=== PATIENT | female | born 1945 | race Caucasian/White ===

== ENCOUNTER 2018-03-04 06:46 | Emergency (ER) | payer MEDICARE, MEDICAID ==
[~2018-03-04] VITALS: Ht 162.6 cm; Wt 70.0 kg
[~2018-03-04 06:46] MED LIST: AMLO5TAB PO; CYCL-1 PO; NO HOME MEDS; ONDA4TAB6 PO
[2018-03-04] MEDS ORDERED: aspirin 81mg tab.chew PO ONE (07:10)
[2018-03-04] MEDS ORDERED: acetaminophen 325mg tablet PO ONE (07:10)
[2018-03-04] MEDS ORDERED: proCHLORperazine 10 MG/2 ml inj IV ONE (07:10)
[2018-03-04] MEDS ORDERED: dexamethasone 4mg/ml inj IV ONE (07:10)
[2018-03-04 07:39] LABS: BASOPHILS % (AUTO) 0.3 % (0-1); EOSINOPHILS # (AUTO) 0.2 X10'3 (0-0.9); EOSINOPHILS % (AUTO) 2.5 % (0-6); HEMOGLOBIN 10.7 g/dl (12.0-16.0); LYMPHOCYTES # (AUTO) 0.9 X10'3 (1.1-4.8); LYMPHOCYTES % (AUTO) 14.2 % (21-51); MEAN CORPUSCULAR HEMOGLOBIN 26.7 PG (27.0-31.0); MEAN CORPUSCULAR HGB CONC 33.5 % (33.0-36.5); MEAN CORPUSCULAR VOLUME 79.7 FL (78-98); MEAN PLATELET VOLUME 6.6 FL (7.4-10.4); MONOCYTES # (AUTO) 0.6 X10'3 (0-0.9); MONOCYTES % (AUTO) 9.5 % (2-12); NEUTROPHILS # (AUTO) 4.8 X10'3 (1.8-7.7); NEUTROPHILS % (AUTO) 73.5 % (42-75); PLATELET COUNT 252 X10'3 (140-440); RED BLOOD COUNT 4.02 X10'6 (4.20-5.60); RED CELL DISTRIBUTION WIDTH 17.5 % (11.5-14.5); WHITE BLOOD COUNT 6.5 X10'3 (4.5-11.0)
[2018-03-04 07:53] LABS: ALANINE AMINOTRANSFERASE 28 U/L (12-78); ALBUMIN 3.4 G/DL (3.4-5.0); ALBUMIN/GLOBULIN RATIO 0.8 (1.1-1.5); ALKALINE PHOSPHATASE 76 IU/L (46-116); ANION GAP 11 (8-16); ASPARTATE AMINO TRANSFERASE 19 U/L (10-37); BILIRUBIN,TOTAL 0.2 MG/DL (0.1-1.0); BLOOD UREA NITROGEN 16 MG/DL (7-18); BUN/CREATININE RATIO 19.5 (6.6-38.0); CALCIUM 8.9 MG/DL (8.5-10.1); CHLORIDE 107 MMOL/L (99-107); CREATININE 0.82 MG/DL (0.40-0.90); GLUCOSE 95 MG/DL (70-104); MAGNESIUM 2.3 MG/DL (1.5-2.4); POTASSIUM 3.6 MMOL/L (3.5-5.1); SODIUM 143 MMOL/L (135-145); TOTAL CARBON DIOXIDE 25.4 MMOL/L (24-32); TOTAL PROTEIN 7.8 G/DL (6.4-8.2); eGFR 69 ML/MIN
[2018-03-04] MEDS ORDERED: AZIT-63 PO (08:45)
[2018-03-04] MEDS ORDERED: azithromycin 250mg tablet PO ONE (08:50)
[2018-03-04 08:58] VITALS: BP 131/66
== END 2018-03-04 09:00 | disposition home or self-care (01) ==
LOC: ER 06:46
DX: G43.909 Migraine, unspecified, not intractable, without status migrainosus (principal); J06.9 Acute upper respiratory infection, unspecified; R52 Pain, unspecified; F12.90 Cannabis use, unspecified, uncomplicated; Z98.890 Other specified postprocedural states; Z79.899 Other long term (current) drug therapy; Z88.6 Allergy status to analgesic agent; Z88.5 Allergy status to narcotic agent
CPT/HCPCS: 36415; 71045; 80053; 83735; 84484; 85025; 93005; 96374; 96375; 99285; J0780; J1100

== ENCOUNTER 2018-04-03 08:42 | Emergency (ER) | payer MEDICARE, MEDICAID ==
[~2018-04-03] VITALS: Ht 162.6 cm; Wt 70.5 kg
[2018-04-03 08:44] VITALS: BP 127/64
[2018-04-03] MEDS ORDERED: normal saline 1000ML IV soln IVB ONE (09:00)
[2018-04-03] MEDS ORDERED: ondansetron/PF 4mg/2ml inj IV ONE ×2 (09:00→11:55)
[2018-04-03] MEDS ORDERED: iohexol 300mg/ml 100ml inj. ONE (09:08)
[2018-04-03 10:06] LABS: BASOPHILS % (AUTO) 0.1 % (0-1); EOSINOPHILS # (AUTO) 0.1 X10'3 (0-0.9); EOSINOPHILS % (AUTO) 1.1 % (0-6); HEMATOCRIT 28.4 % (35.0-45.0); HEMOGLOBIN 9.3 g/dl (12.0-16.0); LYMPHOCYTES # (AUTO) 0.2 X10'3 (1.1-4.8); LYMPHOCYTES % (AUTO) 3.7 % (21-51); MEAN CORPUSCULAR HEMOGLOBIN 25.6 PG (27.0-31.0); MEAN CORPUSCULAR HGB CONC 32.8 % (33.0-36.5); MEAN CORPUSCULAR VOLUME 78.1 FL (78-98); MEAN PLATELET VOLUME 6.4 FL (7.4-10.4); MONOCYTES # (AUTO) 0.2 X10'3 (0-0.9); MONOCYTES % (AUTO) 3.4 % (2-12); NEUTROPHILS # (AUTO) 6.2 X10'3 (1.8-7.7); NEUTROPHILS % (AUTO) 91.7 % (42-75); PLATELET COUNT 252 X10'3 (140-440); RED BLOOD COUNT 3.64 X10'6 (4.20-5.60); RED CELL DISTRIBUTION WIDTH 16.8 % (11.5-14.5); WHITE BLOOD COUNT 6.7 X10'3 (4.5-11.0)
[2018-04-03 10:21] LABS: ALANINE AMINOTRANSFERASE 21 U/L (12-78); ALBUMIN/GLOBULIN RATIO 0.8 (1.1-1.5); ALKALINE PHOSPHATASE 86 IU/L (46-116); ANION GAP 13 (8-16); ASPARTATE AMINO TRANSFERASE 19 U/L (10-37); BILIRUBIN,TOTAL 0.4 MG/DL (0.1-1.0); BLOOD UREA NITROGEN 16 MG/DL (7-18); BUN/CREATININE RATIO 21.3 (6.6-38.0); CALCIUM 7.6 MG/DL (8.5-10.1); CHLORIDE 103 MMOL/L (99-107); CREATININE 0.75 MG/DL (0.40-0.90); GLUCOSE 117 MG/DL (70-104); LIPASE 150 U/L (73-393); POTASSIUM 3.6 MMOL/L (3.5-5.1); SODIUM 138 MMOL/L (135-145); TOTAL CARBON DIOXIDE 22.5 MMOL/L (24-32); TOTAL PROTEIN 6.9 G/DL (6.4-8.2); eGFR 76 ML/MIN
[2018-04-03 10:40] LABS: CLARITY,URINE CLEAR (Clear); COLOR,URINE STRAW (Yellow); GLUCOSE, URINE NEGATIVE (Neg); KETONES,URINE NEGATIVE (Neg); LEUKOCYTE ESTERASE ,URINE NEGATIVE (Neg); NITRITES, URINE NEGATIVE (Neg); OCCULT BLOOD,URINE NEGATIVE (Neg); PROTEIN,URINE NEGATIVE (Neg); UROBILINOGEN,URINE 0.2 E.U/dL (0.2-1.0)
[2018-04-03 10:42] LABS: UA COLLECTION TYPE FOLEY CATH
[2018-04-03] MEDS ORDERED: fentaNYL/PF 50MCG/1 ML 2ML syringe IV ONE (10:50)
[2018-04-03] MEDS ORDERED: dicyclomine 10 MG capsule PO ONE (10:50)
[2018-04-03] MEDS ORDERED: METR500T4 PO (11:33)
[2018-04-03] MEDS ORDERED: ONDA8TAB9 PO (11:53)
[2018-04-03 14:06] LABS: OCCULT BLOOD STOOL POSITIVE (Neg)
== END 2018-04-03 12:07 | disposition home or self-care (01) ==
LOC: ER 08:42
DX: K52.9 Noninfective gastroenteritis and colitis, unspecified (principal); F12.90 Cannabis use, unspecified, uncomplicated; Z98.890 Other specified postprocedural states; Z59.0 Homelessness; Z88.6 Allergy status to analgesic agent; Z88.5 Allergy status to narcotic agent; Z88.8 Allergy status to other drugs, medicaments and biological substances; Z79.899 Other long term (current) drug therapy
CPT/HCPCS: 36415; 74177; 80053; 81003; 82272; 83690; 85025; 96361; 96374; 96375; 96376; 99285; A4353; J2405; J3010; J7030; Q9967

== ENCOUNTER 2018-06-12 16:16 | Emergency (ER) | payer MEDICARE, MEDICAID ==
[~2018-06-12] VITALS: Ht 162.6 cm; Wt 70.5 kg
[~2018-06-12 16:16] MED LIST changes: +OMEP40CA37 PO; +ONDA8TAB9 PO
[2018-06-12] MEDS ORDERED: normal saline 1000ML IV soln IVB ONE (17:25)
[2018-06-12] MEDS ORDERED: diphenhydrAMINE 50 mg/ml inj IV ONE (17:25)
[2018-06-12] MEDS ORDERED: proCHLORperazine 10 MG/2 ml inj IV ONE (17:25)
[2018-06-12 18:15] VITALS: BP 150/91
[2018-06-12] MEDS ORDERED: metoclopramide 5 mg/ml inj IV ONE (19:00)
[2018-06-12] MEDS ORDERED: acetaminophen 325mg tablet PO ONE (19:00)
== END 2018-06-12 20:00 | disposition home or self-care (01) ==
LOC: ER 16:17
DX: G43.909 Migraine, unspecified, not intractable, without status migrainosus (principal); M62.838 Other muscle spasm; R20.0 Anesthesia of skin; R11.0 Nausea; F12.10 Cannabis abuse, uncomplicated; Z59.0 Homelessness; Z88.5 Allergy status to narcotic agent; Z88.6 Allergy status to analgesic agent
CPT/HCPCS: 96374; 96375; 99283; J0780; J1200; J2765; J7030

== ENCOUNTER 2018-08-22 18:27 | Emergency (ER) | payer MEDICARE, MEDICAID ==
[~2018-08-22] VITALS: Ht 162.6 cm; Wt 62.0 kg
[~2018-08-22 18:27] MED LIST changes: -OMEP40CA37 PO
--- NOTE | 2018-08-22 20:00 | NUR ---
PATIENT TOOK IBUPROFEN 400 MG TODAY THIS AFTERNOON AND AN EXEDRIN [place] A FEW HOURS LATER
[2018-08-22] MEDS ORDERED: normal saline 1000ML IV soln IVB ONE (20:15)
[2018-08-22] MEDS ORDERED: LORazepam 2 mg/ml vial IV ONE (20:15)
[2018-08-22] MEDS ORDERED: metoclopramide 5 mg/ml inj IV ONE (20:15)
[2018-08-22 20:33] LABS: BASOPHILS % (AUTO) 0.5 % (0-1); EOSINOPHILS # (AUTO) 0.2 X10'3 (0-0.9); EOSINOPHILS % (AUTO) 3.3 % (0-6); HEMATOCRIT 34.5 % (35.0-45.0); HEMOGLOBIN 11.3 g/dl (12.0-16.0); LYMPHOCYTES # (AUTO) 1.5 X10'3 (1.1-4.8); LYMPHOCYTES % (AUTO) 26.6 % (21-51); MEAN CORPUSCULAR HEMOGLOBIN 25.8 PG (27.0-31.0); MEAN CORPUSCULAR HGB CONC 32.8 g/dL (33.0-36.5); MEAN CORPUSCULAR VOLUME 78.5 FL (78-98); MONOCYTES # (AUTO) 0.4 X10'3 (0-0.9); MONOCYTES % (AUTO) 7.9 % (2-12); NEUTROPHILS # (AUTO) 3.5 X10'3 (1.8-7.7); NEUTROPHILS % (AUTO) 61.7 % (42-75); PLATELET COUNT 244 X10'3 (140-440); RED CELL DISTRIBUTION WIDTH 19.6 % (11.5-14.5); WHITE BLOOD COUNT 5.6 X10'3 (4.5-11.0)
[2018-08-22 20:48] LABS: ALANINE AMINOTRANSFERASE 18 U/L (12-78); ALBUMIN 3.8 G/DL (3.4-5.0); ALBUMIN/GLOBULIN RATIO 0.9 (1.1-1.5); ALKALINE PHOSPHATASE 97 IU/L (46-116); ANION GAP 12 (8-16); ASPARTATE AMINO TRANSFERASE 18 U/L (10-37); BILIRUBIN,TOTAL 0.2 MG/DL (0.1-1.0); BLOOD UREA NITROGEN 18 MG/DL (7-18); CALCIUM 8.9 MG/DL (8.5-10.1); CHLORIDE 104 MMOL/L (99-107); CREATININE 0.75 MG/DL (0.40-0.90); ETHANOL < 0.010 GM/DL (0.0-0.010); GLUCOSE 104 MG/DL (70-104); POTASSIUM 4.1 MMOL/L (3.5-5.1); SODIUM 140 MMOL/L (135-145); TOTAL PROTEIN 8.2 G/DL (6.4-8.2); eGFR 76 ML/MIN
[2018-08-22 20:58] LABS: INR 0.9 INR; PROTHROMBIN TIME 9.5 SECONDS (9.0-12.0)
[2018-08-22 20:58] LABS: CLARITY,URINE CLEAR (Clear); COLOR,URINE YELLOW (Yellow); GLUCOSE, URINE NEGATIVE (Neg); KETONES,URINE NEGATIVE (Neg); LEUKOCYTE ESTERASE ,URINE NEGATIVE (Neg); NITRITES, URINE NEGATIVE (Neg); OCCULT BLOOD,URINE NEGATIVE (Neg); PH,URINE 7.5 (4.8-8.0); PROTEIN,URINE NEGATIVE (Neg); UROBILINOGEN,URINE 0.2 E.U/dL (0.2-1.0)
--- NOTE | 2018-08-22 21:07 | NUR ---
TO CT SCAN [place]IA [place]
[2018-08-22 21:12] LABS: UA COLLECTION TYPE CLN CATCH MIDSTREAM
[2018-08-22 21:15] LABS: URINE AMPHETAMINE SCREEN NEGATIVE (Neg); URINE BARBITUATE SCREEN NEGATIVE (Neg); URINE BENZODIAZEPINES SCREEN NEGATIVE (Neg); URINE CANNABINOID SCREEN NEGATIVE (Neg); URINE COCAINE SCREEN NEGATIVE (Neg); URINE METHADONE SCREEN NEGATIVE (Neg); URINE OPIATE SCREEN NEGATIVE (Neg); URINE PHENCYCLIDINE SCREEN NEGATIVE (Neg)
[2018-08-22] MEDS ORDERED: dexamethasone sod phosphate 10mg/ml inj IV STA (21:54)
[2018-08-22 22:44] VITALS: BP 128/88
--- NOTE | 2018-08-22 22:45 | NUR ---
PATIENT IS STAYING AT [facility]
== END 2018-08-22 22:53 | disposition home or self-care (01) ==
LOC: ER 18:27
DX: G43.909 Migraine, unspecified, not intractable, without status migrainosus (principal); M54.2 Cervicalgia; M25.519 Pain in unspecified shoulder; M62.838 Other muscle spasm; E07.9 Disorder of thyroid, unspecified; F12.90 Cannabis use, unspecified, uncomplicated; Z88.6 Allergy status to analgesic agent; Z88.8 Allergy status to other drugs, medicaments and biological substances; Z79.899 Other long term (current) drug therapy; Z59.0 Homelessness; Z98.890 Other specified postprocedural states
CPT/HCPCS: 36415; 70450; 80053; 80305; 80320; 81003; 85025; 85610; 96374; 96375; 99284; J1100; J2060; J2765; J7030

== ENCOUNTER → 2018-11-17 | Emergency (ER) | payer MEDICARE, MEDICAID ==
[~2018-11-17] VITALS: Ht 162.6 cm; Wt 72.7 kg
[2018-11-17 00:21] VITALS: BP 107/64
--- NOTE | 2018-11-17 01:00 | NUR ---
DR ALEJANDRO AT BEDSIDE WITH PT
== END ==
LOC: ER 00:09
DX: M54.5 Low back pain (principal); Z02.89 Encounter for other administrative examinations; M54.2 Cervicalgia; G43.909 Migraine, unspecified, not intractable, without status migrainosus; F12.90 Cannabis use, unspecified, uncomplicated; Z59.0 Homelessness; Z98.890 Other specified postprocedural states; Z88.6 Allergy status to analgesic agent; Z88.5 Allergy status to narcotic agent; Z79.899 Other long term (current) drug therapy; V49.88XA Car occupant (driver) (passenger) injured in other specified transport accidents, initial encounter; Y93.89 Activity, other specified; Y92.481 Parking lot as the place of occurrence of the external cause; Y99.9 Unspecified external cause status
CPT/HCPCS: 99283

== ENCOUNTER 2019-03-25 17:50 | Emergency (ER) | payer MEDICARE, MEDICAID ==
[~2019-03-25] VITALS: Ht 162.6 cm; Wt 77.3 kg
[2019-03-25 18:01] VITALS: BP 167/80
[2019-03-25 19:06] LABS: CLARITY,URINE CLEAR (Clear); COLOR,URINE YELLOW (Yellow); GLUCOSE, URINE NEGATIVE (Neg); KETONES,URINE NEGATIVE (Neg); LEUKOCYTE ESTERASE ,URINE NEGATIVE (Neg); NITRITES, URINE NEGATIVE (Neg); OCCULT BLOOD,URINE NEGATIVE (Neg); PH,URINE 6.5 (4.8-8.0); PROTEIN,URINE NEGATIVE (Neg); UROBILINOGEN,URINE 0.2 E.U/dL (0.2-1.0)
[2019-03-25 19:09] LABS: UA COLLECTION TYPE CLN CATCH MIDSTREAM
[2019-03-25] MEDS ORDERED: PROC-8 PO (20:24)
[2019-03-25] MEDS ORDERED: proCHLORperazine 10mg tablet PO ONE (20:25)
[2019-03-25] MEDS ORDERED: SUMAtriptan succ. 6 MG/0.5ml vial SQ ONE (20:25)
[2019-03-25] MEDS ORDERED: meperidine/PF 50mg/ml syringe IM ONE (20:25)
== END 2019-03-25 21:03 | disposition home or self-care (01) ==
LOC: ER 17:51
DX: G43.109 Migraine with aura, not intractable, without status migrainosus (principal); E07.9 Disorder of thyroid, unspecified; F12.90 Cannabis use, unspecified, uncomplicated; Z98.890 Other specified postprocedural states; Z59.0 Homelessness; Z88.6 Allergy status to analgesic agent; Z88.5 Allergy status to narcotic agent; Z79.899 Other long term (current) drug therapy
CPT/HCPCS: 81003; 96372; 99283; J2175; J3030; Q0164

== ENCOUNTER 2019-06-22 23:26 | Emergency (ER) | payer MEDICARE, MEDICAID ==
[~2019-06-22] VITALS: Ht 162.6 cm; Wt 75.0 kg
[~2019-06-22 23:26] MED LIST changes: +PROC-8 PO
[2019-06-23] MEDS ORDERED: PROC5TAB56 PO (00:15)
[2019-06-23] MEDS ORDERED: SUMAtriptan succ. 6 MG/0.5ml vial SQ ONE (00:15)
[2019-06-23] MEDS ORDERED: SUMA25TA35 PO (00:15)
--- NOTE | 2019-06-23 00:43 | NUR ---
PT REQUIRES TRANSPO TO [facility]. PT STABLE. PENDING TRANSPORTATION.
[2019-06-23 00:48] VITALS: BP 170/96
== END 2019-06-23 00:50 | disposition home or self-care (01) ==
LOC: ER 23:26
DX: G43.909 Migraine, unspecified, not intractable, without status migrainosus (principal); F12.90 Cannabis use, unspecified, uncomplicated; Z98.890 Other specified postprocedural states; Z59.0 Homelessness; Z88.6 Allergy status to analgesic agent; Z88.8 Allergy status to other drugs, medicaments and biological substances; Z88.5 Allergy status to narcotic agent; Z79.899 Other long term (current) drug therapy
CPT/HCPCS: 96372; 99283; J3030

== ENCOUNTER 2019-07-05 21:38 | Emergency (ER) | payer MEDICARE, MEDICAID ==
[~2019-07-05] VITALS: Ht 162.6 cm; Wt 74.0 kg
[~2019-07-05 21:38] MED LIST changes: +PROC5TAB56 PO; +SUMA25TA35 PO
[2019-07-05] MEDS ORDERED: ketorolac trometh. 30mg/ml inj. IV ONE (23:15)
[2019-07-05] MEDS: diphenhydrAMINE 25mg capsule PO ONE ×2 (23:21→23:26)
[2019-07-05] MEDS: proCHLORperazine 10mg tablet PO ONE ×2 (23:21→23:26)
--- NOTE | 2019-07-05 23:25 | NUR ---
Pt is refusing to take benadryl, compazine, and toradol. She also states that she does not want to be seen by a nurse practitioner, but rather a doctor.
[2019-07-05] MEDS ORDERED: LORazepam 1 MG tablet PO ONE (23:30)
[2019-07-05] MEDS ORDERED: morphine 4 MG/ML inj SYRINge IM ONE (23:30)
--- NOTE | 2019-07-06 00:15 | NUR ---
WENT TO ROOM TO OBTAIN URINE ALEXICEDEN. PT COMPLAIING OF PAIN STATING THAT 4MG OF MORPHINE DID NOT HELP " I WANT 100 MG OF MORPHINE THATS WHAT I NEED , I DON NOT WANT A gear design engineer HELPING ME I WANT A . SPOKE WITH LILLIE MCCORD ABOUT PT PAIN MEDICATION DEMANDS , BEHAVIOR AND COMMENTS. DR MCCORD TO SEE PT
--- NOTE | 2019-07-06 00:20 | NUR ---
REPORTED PT CONCERNS TO PRIMARY RN Aldo
[2019-07-06] MEDS ORDERED: SUMAtriptan succ. 6 MG/0.5ml vial SQ ONE (00:25)
[2019-07-06 00:30] LABS: CLARITY,URINE CLEAR (Clear); COLOR,URINE STRAW (Yellow); GLUCOSE, URINE NEGATIVE (Neg); KETONES,URINE NEGATIVE (Neg); LEUKOCYTE ESTERASE ,URINE TRACE (Neg); NITRITES, URINE NEGATIVE (Neg); OCCULT BLOOD,URINE NEGATIVE (Neg); PROTEIN,URINE NEGATIVE (Neg); UROBILINOGEN,URINE 0.2 E.U/dL (0.2-1.0)
--- NOTE | 2019-07-06 00:38 | NUR ---
pt verbalized that she might have been mistaken and the medicine she has taken before was demerol not morphine that she was mis spoke . reassured pt that we would like to make her comfortable and that i have noted her chart
[2019-07-06 00:43] LABS: UA COLLECTION TYPE CLN CATCH MIDSTREAM
[2019-07-06 00:45] LABS: BACTERIA,URINE NONE SEEN /HPF (Neg); MUCUS STRANDS NONE SEEN /LPF (Neg); RBC,URINE NONE SEEN /HPF (0-2); SQUAMOUS EPITHELIAL CELL,UR FEW /LPF (FEW); WBC,URINE 0-4 /HPF (0-4)
--- NOTE | 2019-07-06 00:47 | NUR ---
pt up out of bed to [facility]
[2019-07-06] MEDS ORDERED: morphine 10mg/ml inj. IM ONE (01:10)
[2019-07-06] MEDS ORDERED: CEPH500C2 PO (01:51)
[2019-07-06] MEDS ORDERED: normal saline 1000ML IV soln IVB ONE (02:05)
[2019-07-06 04:12] VITALS: BP 141/74
== END 2019-07-06 04:16 | disposition home or self-care (01) ==
LOC: ER 21:40
DX: G43.909 Migraine, unspecified, not intractable, without status migrainosus (principal); N30.00 Acute cystitis without hematuria; G89.29 Other chronic pain; F12.90 Cannabis use, unspecified, uncomplicated; Z98.890 Other specified postprocedural states; Z59.0 Homelessness; Z88.5 Allergy status to narcotic agent; Z88.8 Allergy status to other drugs, medicaments and biological substances; Z79.2 Long term (current) use of antibiotics; Z79.899 Other long term (current) drug therapy
CPT/HCPCS: 81001; 87088; 96372; 99283; J2270; J7030; Q0163; J3030; Q0164

== ENCOUNTER 2019-10-05 07:10 | Emergency (ER) | payer MEDICARE, MEDICAID ==
[~2019-10-05] VITALS: Ht 162.6 cm; Wt 85.0 kg
[2019-10-05] MEDS ORDERED: SUMAtriptan succ. 6 MG/0.5ml vial SQ ONE (07:25)
[2019-10-05] MEDS ORDERED: acetaminophen 325mg tablet PO ONE (07:25)
[2019-10-05] MEDS ORDERED: proCHLORperazine 10 MG/2 ml inj IV ONE (07:25)
[2019-10-05] MEDS ORDERED: normal saline 1000ML IV soln IVB ONE (07:25)
[2019-10-05 07:43] LABS: BASOPHILS % (AUTO) 0.6 % (0-1); EOSINOPHILS # (AUTO) 0.1 X10'3 (0-0.9); EOSINOPHILS % (AUTO) 2.4 % (0-6); HEMATOCRIT 30.5 % (35.0-45.0); HEMOGLOBIN 9.4 g/dl (12.0-16.0); LYMPHOCYTES # (AUTO) 0.8 X10'3 (1.1-4.8); LYMPHOCYTES % (AUTO) 14.1 % (21-51); MEAN CORPUSCULAR HEMOGLOBIN 24.2 PG (27.0-31.0); MEAN CORPUSCULAR HGB CONC 30.8 g/dL (33.0-36.5); MEAN CORPUSCULAR VOLUME 78.7 FL (78-98); MEAN PLATELET VOLUME 6.5 FL (7.4-10.4); MONOCYTES # (AUTO) 0.5 X10'3 (0-0.9); MONOCYTES % (AUTO) 8.8 % (2-12); NEUTROPHILS # (AUTO) 4.1 X10'3 (1.8-7.7); NEUTROPHILS % (AUTO) 74.1 % (42-75); PLATELET COUNT 258 X10'3 (140-440); RED BLOOD COUNT 3.88 X10'6 (4.20-5.60); RED CELL DISTRIBUTION WIDTH 26.4 % (11.5-14.5); WHITE BLOOD COUNT 5.5 X10'3 (4.5-11.0)
--- NOTE | 2019-10-05 07:54 | NUR ---
meds administered for headache and [place], vs updated
[2019-10-05 07:58] LABS: ALANINE AMINOTRANSFERASE 21 U/L (12-78); ALBUMIN 3.3 G/DL (3.4-5.0); ALBUMIN/GLOBULIN RATIO 0.9 (1.1-1.5); ALKALINE PHOSPHATASE 67 IU/L (46-116); ANION GAP 8 (8-16); ASPARTATE AMINO TRANSFERASE 19 U/L (10-37); BILIRUBIN,TOTAL 0.1 MG/DL (0.1-1.0); BLOOD UREA NITROGEN 18 MG/DL (7-18); BUN/CREATININE RATIO 21.2 (6.6-38.0); CALCIUM 8.3 MG/DL (8.5-10.1); CHLORIDE 107 MMOL/L (99-107); CREATININE 0.85 MG/DL (0.40-0.90); ETHANOL < 0.010 GM/DL (0.0-0.010); GLUCOSE 92 MG/DL (70-104); MAGNESIUM 2.1 MG/DL (1.5-2.4); POTASSIUM 3.8 MMOL/L (3.5-5.1); SODIUM 142 MMOL/L (135-145); TOTAL CARBON DIOXIDE 26.8 MMOL/L (24-32); TOTAL PROTEIN 7.1 G/DL (6.4-8.2); eGFR 66 ML/MIN
[2019-10-05 08:21] LABS: ANISOCYTOSIS 3+; HYPOCHROMASIA 2+; MICROCYTOSIS 1+; PLATELET ESTIMATE NORMAL
[2019-10-05 08:22] LABS: ELLIPTOCYTES FEW
--- NOTE | 2019-10-05 08:30 | NUR ---
patients vs updated, still has nausea, voided but could not collect sample patient comtaminated sample with paper, will try again, pain 02/18, patient still cannot recall if she takes meds, or [facility], she was asked if she was allergic to morphine and she answered no right away. pt able to get to and from [facility] without assistance, will continue to monitor
--- NOTE | 2019-10-05 09:04 | NUR ---
patient voided ua collected, patient instrusted to [facility], patient stated that her headache and neasua is not improved provider notified and is writing a rx for zofran for patient to take home.
[2019-10-05] MEDS ORDERED: ONDA4TAB6 PO (09:08)
[2019-10-05 09:12] LABS: CLARITY,URINE CLEAR (Clear); COLOR,URINE STRAW (Yellow); GLUCOSE, URINE NEGATIVE (Neg); KETONES,URINE NEGATIVE (Neg); LEUKOCYTE ESTERASE ,URINE NEGATIVE (Neg); NITRITES, URINE NEGATIVE (Neg); OCCULT BLOOD,URINE NEGATIVE (Neg); PROTEIN,URINE NEGATIVE (Neg); UROBILINOGEN,URINE 0.2 E.U/dL (0.2-1.0)
[2019-10-05 09:14] LABS: UA COLLECTION TYPE CLN CATCH MIDSTREAM
[2019-10-05 09:24] VITALS: BP 152/87
== END 2019-10-05 09:30 | disposition home or self-care (01) ==
LOC: ER 07:10
DX: G43.109 Migraine with aura, not intractable, without status migrainosus (principal); D53.9 Nutritional anemia, unspecified; G89.29 Other chronic pain; F12.90 Cannabis use, unspecified, uncomplicated; Z98.890 Other specified postprocedural states; Z59.0 Homelessness; Z88.5 Allergy status to narcotic agent; Z88.8 Allergy status to other drugs, medicaments and biological substances; Z79.899 Other long term (current) drug therapy
CPT/HCPCS: 36415; 80053; 80320; 81003; 83735; 85025; 93005; 96372; 96374; 99284; J0780; J7030; J3030